=== PATIENT | female | born 1970 | race Caucasian/White ===

== ENCOUNTER → 2016-09-13 | Outpatient (CLI) | payer BC ==
[~2016-09-13] MED LIST: CLAR5TAB PO
--- NOTE | 2016-09-15 09:47 | SLEEPHOME ---
DATE OF PROCEDURE: 09/13/2016 ORDERED BY: Rosi Contreras NP Diagnostic home sleep testing was performed due to concern for the obstructive sleep apnea syndrome. For testing, a NOX-T3 respiratory monitoring device was used. Continuous record was made of pulse, oxygen saturation, airflow, chest and abdominal strain, and body position. 10 hours and 59 minutes of data were reviewed. Of these, 9 hours and 2 minutes were marked as time in bed. During the interval marked time in bed, there were 76 respiratory events identified of 10 seconds in duration or greater for a respiratory event index of 8.4. The events were primarily obstructive, but mixed and central apneas were also seen. The patient's baseline pulse rate 78 beats per minute. Pulse rate ranged 59-107. Baseline saturation 91%. Lowest oxygen saturation 83%. Testing was performed in both the supine and non-supine positions. IMPRESSION: Abnormal home sleep testing with repetitive respiratory events and oxygen desaturations to 83% with a respiratory event index of 8.4 is consistent with the obstructive sleep apnea syndrome. RECOMMENDATION: The patient should be referred for a formal sleep evaluation and in-laboratory pressure titration.
== END ==
LOC: M SLEEP HO 12:30
PROVIDERS: ATTEND Nurse Practitioner Adult Health
DX: G47.30 Sleep apnea, unspecified (principal)

== ENCOUNTER 2016-10-20 16:33 | Emergency (ER) | payer BC ==
[~2016-10-20] VITALS: Ht 170.2 cm; Wt 119.7 kg
[2016-10-20] MEDS ORDERED: FURO20TA2 PO (16:51)
[2016-10-20] MEDS ORDERED: FLUT11IN INH (16:51)
[2016-10-20] MEDS ORDERED: MONTPOW2 (16:51)
[2016-10-20] MEDS ORDERED: LORA10CA PO (16:51)
[2016-10-20] MEDS ORDERED: PROA1AER INH (16:51)
[2016-10-20] MEDS ORDERED: OMEP40CA2 PO (16:51)
[2016-10-20] MEDS ORDERED: BUDE180INH INH (16:51)
[2016-10-20] MEDS ORDERED: KETOROLAC 60 MG/2 ML VIAL (J1885) IM ONE (17:30)
--- NOTE | 2016-10-20 19:10 | REPUSA ---
CLINICAL HISTORY: Pain. COMMENTS: Real time sonography with duplex doppler was performed with attention to the major deep venous struct ures. Evaluation reveals the common femoral, superficial femoral, popliteal and posterior tibial veins to be completely compressible without intraluminal thrombus. There is normal spontaneous phasic flow and augmentation in all deep veins. The greater saphenous/common femoral vein junction is patent. IMPRESSION: No evidence of DVT. Thank you for your kind referral of this patient.
[2016-10-20] MEDS ORDERED: TYLE325T5 PO (19:20)
[2016-10-20] MEDS ORDERED: NAPR500T2 PO (19:20)
[2016-10-20 20:28] LABS: ANION GAP 8 MEQ/L (8-16); BLOOD UREA NITROGEN 18 MG/DL (7-18); CALCIUM LEVEL 8.6 MG/DL (8.5-10.1); CARBON DIOXIDE LEVEL 28 MEQ/L (21-32); CHLORIDE LEVEL 107 MEQ/L (98-107); CREATININE FOR GFR 0.75 MG/DL (0.55-1.02); GLOMERULAR FILTRATION RATE > 60.0 (>58); GLUCOSE, FASTING 88 MG/DL (70-105); POTASSIUM SERUM 3.8 MEQ/L (3.5-5.1); SODIUM LEVEL 143 MEQ/L (136-145)
[2016-10-20 20:41] VITALS: BP 147/81
== END 2016-10-20 20:52 | disposition home or self-care (01) ==
LOC: M ED 17:34
DX: M79.605 Pain in left leg (principal); J45.909 Unspecified asthma, uncomplicated; Z87.891 Personal history of nicotine dependence; Z79.899 Other long term (current) drug therapy; Z91.018 Allergy to other foods; Z88.1 Allergy status to other antibiotic agents; Z88.0 Allergy status to penicillin; Z88.8 Allergy status to other drugs, medicaments and biological substances; Z88.5 Allergy status to narcotic agent
CPT/HCPCS: 36415; 80048; 93971; 96372; 99283; J1885

== ENCOUNTER 2017-04-21 16:15 | Observation (INO) | payer BC ==
[~2017-04-21] VITALS: Ht 170.2 cm; Wt 126.5 kg
[~2017-04-21 16:15] MED LIST changes: +BUDE180INH INH; +FLUT11IN INH; +FURO20TA2 PO; +LORA10CA PO; +MONTPOW2; +NAPR500T3 PO; +OMEP40CA2 PO; +PROAAER10 INH; +TYLE325T5 PO
[2017-04-21] MEDS ORDERED: ONDANSETRON 4 MG ORAL DISINTEGRATING TAB (S0181) PO ONE (18:00)
[2017-04-21] MEDS ORDERED: NORCO, ANEXSIA 5/325MG TABLET (HYDROcodone/ACETAMINOPHEN) PO ONE (18:00)
[2017-04-21 18:21] LABS: BASO % 0.4 % (0.0-1.0); EOS # 0.1 10^3/uL (0.0-0.50); EOS % 1.5 % (0.0-3.0); IMMATURE GRANULOCYTE % 0.2 % (0-0); LYMPH # 1.5 10^3/uL (1.5-4.5); LYMPH % 16.6 % (24.0-44.0); MEAN CORPUSCULAR HEMOGLOBIN 28.8 pg (27.0-33.0); MEAN CORPUSCULAR HGB CONC 33.6 g/dl (32.0-36.5); MEAN CORPUSCULAR VOLUME 85.7 fl (80.0-96.0); MONO # 0.5 10^3/uL (0.0-0.8); MONO % 5.7 % (0.0-5.0); NEUTROPHILS % 75.6 % (36.0-66.0); PLATELET COUNT, AUTOMATED 295 10^3/uL (150-450); RED CELL DISTRIBUTION WIDTH 13.3 % (11.5-14.5); WHITE BLOOD COUNT 9.3 10^3/uL (4.0-10.0)
[2017-04-21 18:41] LABS: ERYTHROCYTE SEDIMENTATION RATE 26 mm/hr (0-20)
[2017-04-21 18:45] LABS: CALCIUM LEVEL 8.9 MG/DL (8.5-10.1); CREATININE FOR GFR 1.09 MG/DL (0.55-1.02)
[2017-04-21 18:56] LABS: POTASSIUM SERUM 2.2 MEQ/L (3.5-5.1)
[2017-04-21] MEDS ORDERED: KCL 20MEQ IN 100ML SWI (KRUN) 20 MEQ in APPROPRIATE DILUENT 1 EA IV ONE ×2 (19:15)
[2017-04-21] MEDS ORDERED: KCL 10MEQ IN 100ML SWI (KRUN) 10 MEQ in APPROPRIATE DILUENT 1 EA IV ONE ×2 (19:15)
[2017-04-21] MEDS ORDERED: POTASSIUM CHLORIDE 10 MEQ SR TABLET PO ONE (19:15)
[2017-04-21 19:20] LABS: MAGNESIUM LEVEL 1.9 MG/DL (1.8-2.4); PHOSPHORUS LEVEL 3.2 MG/DL (2.5-4.9)
[2017-04-21] MEDS ORDERED: MONT10TA2 PO (19:53)
[2017-04-21] MEDS ORDERED: [UNRECOGNIZED DRUG - CODE] VA (19:53)
[2017-04-21] MEDS ORDERED: FLON1SPR (19:53)
[2017-04-21] MEDS ORDERED: TORS20TA2 PO (19:53)
[2017-04-21] MEDS ORDERED: CLAR5TAB PO (19:53)
[2017-04-21] MEDS ORDERED: OXYB15TA PO (19:53)
[2017-04-21] MEDS ORDERED: ARNU1INH3 INH (19:53)
[2017-04-21] MEDS: ADVAIR HFA 230/21MCG INHALER INH SCH (20:00)
[2017-04-21] MEDS ORDERED: KCL 10MEQ IN 100ML SWI (KRUN) 10 MEQ in APPROPRIATE DILUENT 1 EA IV PRN ×2 (20:00)
[2017-04-21] MEDS ORDERED: ALBUTEROL SULFATE 2.5 MG/0.5 ML INH NEB SOLN NEB PRN (20:15)
[2017-04-21] MEDS ORDERED: ACETAMINOPHEN TAB 650MG DOSE (2X325MG) PO PRN (20:15)
[2017-04-21] MEDS ORDERED: ONDANSETRON 4MG/2ML VIAL (J2405) IV PRN (20:15)
[2017-04-21 22:00] VITALS: BP 135/77
[2017-04-22] MEDS: HEPARIN SOD (PORCINE) 5000 UNITS/ML VIAL SC SCH ×2 (00:02→08:48)
[2017-04-22] MEDS: POTASSIUM CHLORIDE 10 MEQ SR TABLET PO SCH ×4 (00:58→14:21)
--- NOTE | 2017-04-22 05:43 | HPEPDOC ---
General Date of Admission Apr 21, 2017 at 20:07 Primary Care Physician: Thao Paez Other Providers Admitting Physician: Emmanuel Briggs MD Attending Physician: KASIA MON DO Chief Complaint The patient is a 46-year-old female admitted with a reason for visit of Hypokalemia Due To Loss Of Potassium. Source: Patient Exam Limitations: No limitations History of Present Illness 46f h/o asthma, venous insufficiency, GERD who presents with LE weakness and cramping in hands. Patient denied, focal motor deficit, dysarthria, dysphagia, parasthesias. She did report pain in her hands that she described as crampy in nature. She did report that she had an adjustment to one of ther home meds ( torsemide) this past week. Patient had labs drawn in ED and found to be severely hypokalemic. Home Medications Scheduled (Flonase Allergy Relief) 50 Mcg/Act Spr, 2 SPRAYS NA DAILY, (Reported) (Arnuity Ellipta) 200 Mcg/Act Inh, 1 PUFF INH DAILY, (Reported) (Yuvafem) 10 Mcg Tab, 10 MCG VA 3XW, (Reported) MON, WED, AND SAT Desloratadine (Clarinex) 5 Mg Tab, 5 MG PO DAILY, (Reported) Montelukast Sodium (Montelukast Sodium) 10 Mg Tab, 10 MG PO DAILY, (Reported) Omeprazole (Omeprazole) 40 Mg Cap, 40 MG PO DAILY, (Reported) Oxybutynin Chloride (Oxybutynin Chloride ER) 15 Mg Tab, 15 MG PO DAILY, ( Reported) Torsemide (Torsemide) 20 Mg Tab, 40 MG PO DAILY, (Reported) Scheduled PRN Albuterol Sulfate (Proair Hfa) 108 Mcg/Act Aer, 2 PUFF INH for BRONCHOSPASM, ( Reported) Allergies Coded Allergies: Coconut (Verified Allergy, Severe, HIVES, SWOLLEN THROAT, 04/03/12) Codeine (Verified Allergy, Intermediate, HIVES, SWELLING, 09/08/12) Erythromycin (Verified Allergy, Intermediate, HIVES, NAUSEA, 09/08/12) Penicillins (Verified Allergy, Unknown, 09/08/12) Penicillins Cross Reactors (Verified Allergy, Unknown, 09/08/12) Carisoprodol (Verified Adverse Reaction, Severe, convulsions, 09/08/12) Pentazocine (Verified Adverse Reaction, Severe, SIEZURES, 09/08/12) [place] Flavor (Verified Adverse Reaction, Mild, 04/21/17) NAUSEA VOMITING Past Medical History Medical History 1. Venous insufficiency 2. Asthma, mild-intermittent 3. Hiatal hernia with GERD 4. Dysmenorrhagia 5. Uterine fibroids 6. Allergic rhinitis Surgical History 1. Cholecystectomy 2. Hysterectomy w/BSO 3. Colposcopy 4. Ganglion cyst removal Family History Significant Family History: Cancer (Breast Ca-1 maternal aunt and 1 maternal uncle; Pancreatic Ca-Another maternal aunt) Social History Recent Travel/Sick Contacts: Denies: Recent travel Psychosocial History: No pertinent psych hx Review of Symptoms Constitutional: Reports: Weakness, Denies: Chills, Fever, Malaise Eyes: Denies: Pain, Vision change ENT: Denies: Head Aches, Dysphagia Skin: Denies: Rash, Lesions Pulmonary: Denies: Dyspnea, Cough Cardiovascular: Denies: Chest Pain, Palpitations, Orthopnea Gastrointestinal: Denies: Nausea, Vomiting, Abdominal Pain Genitourinary: Denies: Dysuria, Frequency, Incontinence Hematologic: Denies: Bruising, Bleeding Excessively Endocrine: Denies: Polydipsia, Polyphagia, Polyuria Musculoskeletal: Reports: Hand Pain, Leg Pain, Spasms, Denies: Neck Pain, Back Pain Neurological: Denies: Weakness, Numbness, Change in speech Psych: Reports: Mood Normal, Denies: Anxiety Physical Examination General Exam: Positive: Alert, No Acute Distress Eye Exam: Positive: Conjunctiva & lids normal, Negative: Sclera icteric ENT Exam: Positive: Atraumatic, Mucous membr. moist/pink Neck Exam: Positive: Supple, Negative: JVD Chest Exam: Positive: Clear to auscultation, Normal air movement, Negative: Rales, Rhonchi, Wheezing Heart Exam: Positive: Rate Normal, Regular Rhythm, Normal S1, Normal S2, Negative: Gallops, Murmurs, Rubs Abdomen Exam: Positive: Normal bowel sounds, Soft, Negative: Tenderness Extremity Exam: Negative: Clubbing, Cyanosis, Edema Skin Exam: Positive: Nl turgor and temperature, Negative: Rash Neuro Exam: Positive: Normal Speech, Cranial Nerves 3-12 NL Psych Exam: Positive: Mental status NL, Mood NL, Oriented x 3 Vital Signs Vital Signs Date Time Temp Pulse Resp B/P (MAP) Pulse Ox O2 Delivery O2 Flow Rate FiO2 04/21/17 22:00 98.0 92 18 135/77 (96) 91 Room Air Laboratory Data Labs 24H Laboratory Tests 2 04/21/17 18:11: Immature Granulocyte % (Auto) 0.2H, White Blood Count 9.3, Red Blood Count 4.97 , Hemoglobin 14.3, Hematocrit 42.6, Mean Corpuscular Volume 85.7, Mean Corpuscular Hemoglobin 28.8, Mean Corpuscular Hemoglobin Concent 33.6, Red Cell Distribution Width 13.3, Platelet Count 295, Neutrophils (%) (Auto) 75.6H, Lymphocytes (%) (Auto) 16.6L, Monocytes (%) (Auto) 5.7H, Eosinophils (%) (Auto) 1.5, Basophils (%) (Auto) 0.4, Neutrophils # (Auto) 7.0, Lymphocytes # (Auto) 1.5, Monocytes # (Auto) 0.5, Eosinophils # (Auto) 0.1, Basophils # (Auto) 0.0, Immature Granulocyte # (Auto) 0.0, Nucleated Red Blood Cells % (auto) 0.0, Erythrocyte Sedimentation Rate 26H, Anion Gap 10, Glomerular Filtration Rate 57.0L, Blood Urea Nitrogen 16, Creatinine 1.09H, Sodium Level 136, Potassium Level 2.2*L, Chloride Level 88L, Carbon Dioxide Level 38H, Calcium Level 8.9, Phosphorus Level 3.2, Magnesium Level 1.9, C-Reactive Protein, Quantitative 2.17H CBC/BMP Laboratory Tests 04/21/17 18:11 Red Blood Count 4.97, Mean Corpuscular Volume 85.7, Mean Corpuscular Hemoglobin 28.8, Mean Corpuscular Hemoglobin Concent 33.6, Red Cell Distribution Width 13.3 , Neutrophils (%) (Auto) 75.6 H, Lymphocytes (%) (Auto) 16.6 L, Monocytes (%) ( Auto) 5.7 H, Eosinophils (%) (Auto) 1.5, Basophils (%) (Auto) 0.4, Neutrophils # (Auto) 7.0, Lymphocytes # (Auto) 1.5, Monocytes # (Auto) 0.5, Eosinophils # ( Auto) 0.1, Basophils # (Auto) 0.0, Calcium Level 8.9 04/21/17 23:41 Assessment/Plan 46f h/o asthma, venous insufficiency, GERD who presents with LE weakness, hand cramping and severe hypokalemia after recent increase in her torsemide dose. Plan Plan 1. Hypokalemia Patient's increased dose of torsemide likely cause Will admit to tele to monitor patient's rhythm Pt had been ordered for KCl 40mEq po x1 and 1 run o KCl iv which would have increase her serum K from 2.2 to 2.5 at best Ordered additional KCl iv, but patient is unable to tolerate Her repeat K after supplementation was 2.6. Have ordered an additional 60mEq q4h and will repeat her BMP Patient will need po KCl upon d/c due to her increased dose of torsemide 2. Asthma Continue LABA/ICS Continue desloratadine Continue singulair 3. DVT prophylaxis Ambulation Emmanuel Briggs MD Apr 22, 2017 05:43
--- NOTE | 2017-04-22 05:56 | ECGEPIP ---
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
--- NOTE | 2017-04-22 06:00 | REP ---
RIGHT HAND, FOUR VIEWS: HISTORY: Pain. There is no acute fracture or dislocation. The joint spaces are normal in appearance. IMPRESSION: There is no acute fracture or dislocation. Signed by Ehsan Luo MD 04/22/2017 08:29 A
[2017-04-22 06:34] LABS: MEAN CORPUSCULAR HEMOGLOBIN 27.9 pg (27.0-33.0); MEAN CORPUSCULAR HGB CONC 32.7 g/dl (32.0-36.5); MEAN CORPUSCULAR VOLUME 85.4 fl (80.0-96.0); PLATELET COUNT, AUTOMATED 244 10^3/uL (150-450); RED CELL DISTRIBUTION WIDTH 13.4 % (11.5-14.5); WHITE BLOOD COUNT 7.1 10^3/uL (4.0-10.0)
[2017-04-22 06:51] LABS: ANION GAP 4 MEQ/L (8-16); BLOOD UREA NITROGEN 14 MG/DL (7-18); CALCIUM LEVEL 8.6 MG/DL (8.5-10.1); CARBON DIOXIDE LEVEL 38 MEQ/L (21-32); CHLORIDE LEVEL 96 MEQ/L (98-107); CREATININE FOR GFR 0.78 MG/DL (0.55-1.02); GLOMERULAR FILTRATION RATE > 60.0 (>58); GLUCOSE, FASTING 105 MG/DL (70-105); MAGNESIUM LEVEL 2.4 MG/DL (1.8-2.4); POTASSIUM SERUM 2.9 MEQ/L (3.5-5.1); SODIUM LEVEL 138 MEQ/L (136-145)
[2017-04-22] MEDS: ADVAIR HFA 230/21MCG INHALER INH SCH (08:12)
[2017-04-22] MEDS ORDERED: FLUTICASONE PROP 0.05% NASAL SPRAY 16 GM (FLONASE) SCH (09:00)
[2017-04-22] MEDS ORDERED: MONTELUKAST 10 MG TAB PO SCH (09:00)
[2017-04-22] MEDS ORDERED: OMEPRAZOLE 20 MG CAP PO SCH (09:00)
[2017-04-22] MEDS ORDERED: oxyBUTYnin *DITROPAN XL* 5 MG TABCR PO SCH (09:00)
[2017-04-22] MEDS ORDERED: TORSEMIDE 20 MG TAB PO SCH (09:00)
[2017-04-22] MEDS ORDERED: DESLORATADINE 5 MG TAB (CLARINEX) PO SCH (09:00)
[2017-04-22 10:11] LABS: ALBUMIN 3.1 GM/DL (3.2-5.2); PHOSPHORUS LEVEL 2.8 MG/DL (2.5-4.9)
[2017-04-22 13:43] LABS: ALBUMIN 3.4 GM/DL (3.2-5.2); ANION GAP 5 MEQ/L (8-16); BLOOD UREA NITROGEN 13 MG/DL (7-18); CALCIUM LEVEL 8.8 MG/DL (8.5-10.1); CARBON DIOXIDE LEVEL 35 MEQ/L (21-32); CHLORIDE LEVEL 98 MEQ/L (98-107); CREATININE FOR GFR 0.86 MG/DL (0.55-1.02); GLOMERULAR FILTRATION RATE > 60.0 (>58); GLUCOSE, FASTING 166 MG/DL (70-105); PHOSPHORUS LEVEL 1.5 MG/DL (2.5-4.9); POTASSIUM SERUM 3.6 MEQ/L (3.5-5.1); SODIUM LEVEL 138 MEQ/L (136-145)
[2017-04-22 14:00] VITALS: BP 158/81
[2017-04-22] MEDS ORDERED: POTA20TA PO (14:20)
--- NOTE | 2017-04-22 14:29 | DS.PDOC ---
Discharge Summary General Date of Admission Apr 21, 2017 at 20:07 Date of Discharge Apr 22, 2017 Primary Care Physician: Thao Paez Attending Physician: KASIA MON DO Discharge Summary CONSULTS: None PROCEDURES: None COMPLICATIONS: None ADMISSION / DISCHARGE DIAGNOSIS: 1. Hypokalemia secondary to medications 2. Venous insufficiency 3. Asthma, mild-intermittent 4. Hiatal hernia with GERD 5. Dysmenorrhea 6. Uterine fibroids 7. Allergic rhinitis BRIEF HOSPITAL COURSE: 46 yo female admitted obs last evening for extremely low potassium. Has been supplemented and doing well without further complaint or issues. She had her triamterene increased a few weeks ago without being started on any additional potassium supplementation. Additional causative factors could be related to albuterol use. She otherwise has no complaints and muscle cramps have resolved. For further information regarding labs, diagnostics and notes, please refer to the H&P. PHYSICAL EXAMINATION ON DISCHARGE: VITAL SIGNS: Please see below. GENERAL: NAD, A&OX3 HEENT: PERRLA, throat clear, neck supple, no JVD CARDIOVASCULAR EXAMINATION: RRR RESPIRATORY EXAMINATION: CTA bilaterally ABDOMINAL EXAMINATION: soft, NT/ND, normoactive bowel sounds EXTREMITIES: no edema no calf tenderness SKIN: intact NEUROLOGICAL EXAMINATION: CN'S II-XII grossly intact PSYCHIATRIC EXAMINATION: stable DISCHARGE MEDICATIONS: See below DISCHARGE CONDITION: GOOD DISPOSITION: DISCHARGE HOME DISCHARGE INSTRUCTIONS: Activity: As tolerated Diet: Regular Follow up: one week with PCP. Seek medical attention should symptoms worsen or progress. Voiced understanding by patient. TRANSITION OF CARE ISSUES: Repeat renal profile at PCP office in one week. TIME SPENT ON DISCHARGE: greater than 35 minutes Vital Signs/I&Os Vital Signs Date Time Temp Pulse Resp B/P (MAP) Pulse Ox O2 Delivery O2 Flow Rate FiO2 04/22/17 09:02 Room Air 04/21/17 22:00 98.0 92 18 135/77 (96) 91 I&O- Last 24 Hours up to 6 AM 04/23/17 06:00 Intake Total 600 ml Output Total 1300 ml Balance -700 ml Laboratory Data Labs 24H Laboratory Tests 2 04/21/17 18:11: Immature Granulocyte % (Auto) 0.2H, White Blood Count 9.3, Red Blood Count 4.97 , Hemoglobin 14.3, Hematocrit 42.6, Mean Corpuscular Volume 85.7, Mean Corpuscular Hemoglobin 28.8, Mean Corpuscular Hemoglobin Concent 33.6, Red Cell Distribution Width 13.3, Platelet Count 295, Neutrophils (%) (Auto) 75.6H, Lymphocytes (%) (Auto) 16.6L, Monocytes (%) (Auto) 5.7H, Eosinophils (%) (Auto) 1.5, Basophils (%) (Auto) 0.4, Neutrophils # (Auto) 7.0, Lymphocytes # (Auto) 1.5, Monocytes # (Auto) 0.5, Eosinophils # (Auto) 0.1, Basophils # (Auto) 0.0, Immature Granulocyte # (Auto) 0.0, Nucleated Red Blood Cells % (auto) 0.0, Erythrocyte Sedimentation Rate 26H, Anion Gap 10, Glomerular Filtration Rate 57.0L, Blood Urea Nitrogen 16, Creatinine 1.09H, Sodium Level 136, Potassium Level 2.2*L, Chloride Level 88L, Carbon Dioxide Level 38H, Calcium Level 8.9, Phosphorus Level 3.2, Magnesium Level 1.9, C-Reactive Protein, Quantitative 2.17H 04/22/17 06:23: Nucleated Red Blood Cells % (auto) 0.0, Anion Gap 4L, Glomerular Filtration Rate > 60.0, Blood Urea Nitrogen 14, Creatinine 0.78, Sodium Level 138, Potassium Level 2.9*L, Chloride Level 96L, Carbon Dioxide Level 38H, Calcium Level 8.6, Phosphorus Level 2.8, Magnesium Level 2.4, Albumin 3.1L 04/22/17 12:57: Anion Gap 5L, Glomerular Filtration Rate > 60.0, Blood Urea Nitrogen 13, Creatinine 0.86, Sodium Level 138, Potassium Level 3.6#, Chloride Level 98, Carbon Dioxide Level 35H, Calcium Level 8.8, Phosphorus Level 1.5#L, Albumin 3.4 CBC/BMP Laboratory Tests 04/21/17 18:11 Red Blood Count 4.97, Mean Corpuscular Volume 85.7, Mean Corpuscular Hemoglobin 28.8, Mean Corpuscular Hemoglobin Concent 33.6, Red Cell Distribution Width 13.3 , Neutrophils (%) (Auto) 75.6 H, Lymphocytes (%) (Auto) 16.6 L, Monocytes (%) ( Auto) 5.7 H, Eosinophils (%) (Auto) 1.5, Basophils (%) (Auto) 0.4, Neutrophils # (Auto) 7.0, Lymphocytes # (Auto) 1.5, Monocytes # (Auto) 0.5, Eosinophils # ( Auto) 0.1, Basophils # (Auto) 0.0, Calcium Level 8.9 04/21/17 23:41 04/22/17 06:23 Red Blood Count 4.26, Mean Corpuscular Volume 85.4, Mean Corpuscular Hemoglobin 27.9, Mean Corpuscular Hemoglobin Concent 32.7, Red Cell Distribution Width 13.4 , Calcium Level 8.6 04/22/17 12:57 Anion Gap 5 L Discharge Medications Scheduled (Flonase Allergy Relief) 50 Mcg/Act Spr, 2 SPRAYS NA DAILY, (Reported) (Arnuity Ellipta) 200 Mcg/Act Inh, 1 PUFF INH DAILY, (Reported) (Yuvafem) 10 Mcg Tab, 10 MCG VA 3XW, (Reported) MON, WED, AND SAT Desloratadine (Clarinex) 5 Mg Tab, 5 MG PO DAILY, (Reported) Montelukast Sodium (Montelukast Sodium) 10 Mg Tab, 10 MG PO DAILY, (Reported) Omeprazole (Omeprazole) 40 Mg Cap, 40 MG PO DAILY, (Reported) Oxybutynin Chloride (Oxybutynin Chloride ER) 15 Mg Tab, 15 MG PO DAILY, ( Reported) Potassium Chloride (Klor-Con M20) 20 Meq Tabcr, 20 MEQ PO DAILY Torsemide (Torsemide) 20 Mg Tab, 40 MG PO DAILY, (Reported) Scheduled PRN Albuterol Sulfate (Proair Hfa) 108 Mcg/Act Aer, 2 PUFF INH for BRONCHOSPASM, ( Reported) Allergies Coded Allergies: Coconut (Verified Allergy, Severe, HIVES, SWOLLEN THROAT, 04/03/12) Codeine (Verified Allergy, Intermediate, HIVES, SWELLING, 09/08/12) Erythromycin (Verified Allergy, Intermediate, HIVES, NAUSEA, 09/08/12) Penicillins (Verified Allergy, Unknown, 09/08/12) Penicillins Cross Reactors (Verified Allergy, Unknown, 09/08/12) Carisoprodol (Verified Adverse Reaction, Severe, convulsions, 09/08/12) Pentazocine (Verified Adverse Reaction, Severe, SIEZURES, 09/08/12) [place] Flavor (Verified Adverse Reaction, Mild, 04/21/17) NAUSEA VOMITING KASIA MON DO Apr 22, 2017 14:29
--- NOTE | 2017-04-24 23:49 | ECGEPIP ---
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
== END 2017-04-22 16:40 | disposition home or self-care (01) ==
LOC: M ED 16:15 → M ED INP 20:07 → M MSPAV 22:00
PROVIDERS: ATTEND Hospitalist
DX: E87.6 Hypokalemia (principal); J45.20 Mild intermittent asthma, uncomplicated; K21.9 Gastro-esophageal reflux disease without esophagitis; K44.9 Diaphragmatic hernia without obstruction or gangrene; N94.6 Dysmenorrhea, unspecified; D25.9 Leiomyoma of uterus, unspecified; I73.9 Peripheral vascular disease, unspecified; J30.89 Other allergic rhinitis; M79.641 Pain in right hand; Z79.51 Long term (current) use of inhaled steroids; Z88.0 Allergy status to penicillin; Z88.5 Allergy status to narcotic agent; Z88.8 Allergy status to other drugs, medicaments and biological substances; Z91.018 Allergy to other foods; Z79.899 Other long term (current) drug therapy

== ENCOUNTER → 2017-05-24 | Outpatient (REF) | payer BC ==
[~2017-05-24] MED LIST changes: +ARNU1INH3 INH; +FLON1SPR; +MONT10TA2 PO; +OXYB15TA PO; +POTA20TA PO; +TORS20TA2 PO; +[UNRECOGNIZED DRUG - CODE] VA
== END ==
LOC: M LAB REF 12:51
PROVIDERS: ATTEND Nurse Practitioner Adult Health
DX: E87.6 Hypokalemia (principal); R25.2 Cramp and spasm; R20.8 Other disturbances of skin sensation

== ENCOUNTER → 2017-06-28 | Outpatient (REF) | payer BC ==
[2017-06-28 14:47] LABS: FOLLICLE STIMULATING HORMONE 61.9 mIU/mL; LUTEINIZING HORMONE 34.7 mIU/mL
[2017-06-29 15:11] LABS: ADRENOCORTICOTROPHIC HORMONE 12.1 pg/mL (7.2-63.3)
[2017-06-30 00:07] LABS: SOMATOMEDIN-C INSULIN GROWTH 94 ng/mL (57-195)
== END ==
LOC: M LAB REF 12:06
DX: R79.89 Other specified abnormal findings of blood chemistry (principal); E87.6 Hypokalemia; R25.2 Cramp and spasm
CPT/HCPCS: 83001

== ENCOUNTER 2017-07-30 17:27 | Emergency (ER) | payer BC ==
[2017-07-30] MEDS: GI COCKTAIL 50ML BTL(HYOSCYAMINE/MAALOX/LIDOCAINE VISCOUS)(1:3:1) PO (19:05)
[2017-07-30] MEDS: NS 1,000 ML IV (19:05)
[2017-07-30] MEDS: PANTOPRAZOLE 40MG INJ (PROTONIX) (C9113) IV (19:05)
[2017-07-30] MEDS: ASPIRIN 81 MG CHEW TABLET PO (19:05)
[2017-07-30 19:15] LABS: BASO % 0.6 % (0.0-1.0); EOS # 0.2 10^3/uL (0.0-0.50); EOS % 2.1 % (0.0-3.0); HEMATOCRIT 39.6 % (36.0-47.0); HEMOGLOBIN 13.4 g/dl (12.0-16.0); IMMATURE GRANULOCYTE % 0.3 % (0-3.0); LYMPH # 2.1 10^3/uL (1.5-4.5); LYMPH % 29.3 % (24.0-44.0); MEAN CORPUSCULAR HEMOGLOBIN 29.2 pg (27.0-33.0); MEAN CORPUSCULAR HGB CONC 33.8 g/dl (32.0-36.5); MEAN CORPUSCULAR VOLUME 86.3 fl (80.0-96.0); MONO # 0.6 10^3/uL (0.0-0.8); MONO % 8.6 % (0.0-5.0); NEUTROPHILS # 4.2 10^3/uL (1.8-7.7); NEUTROPHILS % 59.1 % (36.0-66.0); PLATELET COUNT, AUTOMATED 291 10^3/uL (150-450); RED BLOOD COUNT 4.59 10^6/uL (4.00-5.40); RED CELL DISTRIBUTION WIDTH 13.6 % (11.5-14.5); WHITE BLOOD COUNT 7.1 10^3/uL (4.0-10.0)
[2017-07-30 19:19] LABS: ALBUMIN 3.7 GM/DL (3.2-5.2); ALBUMIN/GLOBULIN RATIO 0.97 (1.00-1.93); ALKALINE PHOSPHATASE 94 U/L (45-117); ALT/SGPT 44 U/L (12-78); ANION GAP 5 MEQ/L (8-16); AST/SGOT 26 U/L (7-37); BILIRUBIN,DIRECT < 0.1 MG/DL (0.0-0.2); BILIRUBIN,TOTAL 0.2 MG/DL (0.2-1.0); BLOOD UREA NITROGEN 16 MG/DL (7-18); CALCIUM LEVEL 8.6 MG/DL (8.5-10.1); CARBON DIOXIDE LEVEL 30 MEQ/L (21-32); CHLORIDE LEVEL 107 MEQ/L (98-107); CPK CREATINE PHOSPHOKINASE 109 U/L (26-192); CREATININE FOR GFR 0.92 MG/DL (0.55-1.30); GLOMERULAR FILTRATION RATE > 60.0 (>58); GLUCOSE, FASTING 120 MG/DL (70-100); MB/CK RELATIVE INDEX 0.91 (< OR =4); POTASSIUM SERUM 3.3 MEQ/L (3.5-5.1); SODIUM LEVEL 142 MEQ/L (136-145); TOTAL PROTEIN 7.5 GM/DL (6.4-8.2); TROPONIN I < 0.02 NG/ML (< 0.10)
[2017-07-30 19:28] LABS: INR 1.01; PROTHROMBIN TIME 13.4 SECONDS (12.4-14.5)
[2017-07-30 20:44] LABS: INFLUENZA A AMPLIFICATION NEGATIVE (NEGATIVE); INFLUENZA B AMPLIFICATION NEGATIVE (NEGATIVE)
== END 2017-07-30 22:16 | disposition home or self-care (01) ==
LOC: M ED 17:27
DX: B34.9 Viral infection, unspecified (principal); E11.9 Type 2 diabetes mellitus without complications; I10 Essential (primary) hypertension; J44.9 Chronic obstructive pulmonary disease, unspecified; Z87.891 Personal history of nicotine dependence; Z91.018 Allergy to other foods; Z88.8 Allergy status to other drugs, medicaments and biological substances; Z88.0 Allergy status to penicillin; Z88.5 Allergy status to narcotic agent; Z88.1 Allergy status to other antibiotic agents; Z79.899 Other long term (current) drug therapy; Z79.51 Long term (current) use of inhaled steroids
CPT/HCPCS: C9113

== ENCOUNTER → 2017-08-02 | Outpatient (CLI) | payer BC ==
[2017-08-02 18:13] LABS: ANION GAP 9 MEQ/L (8-16); BLOOD UREA NITROGEN 13 MG/DL (7-18); CALCIUM LEVEL 9.2 MG/DL (8.5-10.1); CARBON DIOXIDE LEVEL 25 MEQ/L (21-32); CHLORIDE LEVEL 109 MEQ/L (98-107); CREATININE FOR GFR 0.76 MG/DL (0.55-1.30); GLOMERULAR FILTRATION RATE > 60.0 (>58); GLUCOSE, FASTING 84 MG/DL (70-100); POTASSIUM SERUM 4.1 MEQ/L (3.5-5.1); SODIUM LEVEL 143 MEQ/L (136-145)
== END ==
LOC: M LAB 17:05
DX: E11.65 Type 2 diabetes mellitus with hyperglycemia (principal)
CPT/HCPCS: 80048

== ENCOUNTER → 2017-08-12 | Outpatient (CLI) | payer BC ==
[2017-08-12 18:01] LABS: ANION GAP 8 MEQ/L (8-16); BLOOD UREA NITROGEN 9 MG/DL (7-18); CALCIUM LEVEL 8.6 MG/DL (8.5-10.1); CARBON DIOXIDE LEVEL 26 MEQ/L (21-32); CHLORIDE LEVEL 108 MEQ/L (98-107); CREATININE FOR GFR 0.78 MG/DL (0.55-1.30); GLOMERULAR FILTRATION RATE > 60.0 (>58); GLUCOSE, FASTING 83 MG/DL (70-100); POTASSIUM SERUM 3.8 MEQ/L (3.5-5.1); SODIUM LEVEL 142 MEQ/L (136-145)
== END ==
LOC: M LAB 16:28
DX: E11.65 Type 2 diabetes mellitus with hyperglycemia (principal)
CPT/HCPCS: 80048

== ENCOUNTER → 2017-08-13 | Outpatient (CLI) | payer BC ==
[2017-08-13 11:39] LABS: ANION GAP 7 MEQ/L (8-16); BLOOD UREA NITROGEN 7 MG/DL (7-18); CALCIUM LEVEL 8.4 MG/DL (8.5-10.1); CARBON DIOXIDE LEVEL 25 MEQ/L (21-32); CHLORIDE LEVEL 110 MEQ/L (98-107); CREATININE FOR GFR 0.74 MG/DL (0.55-1.30); GLOMERULAR FILTRATION RATE > 60.0 (>58); GLUCOSE, FASTING 96 MG/DL (70-100); POTASSIUM SERUM 3.9 MEQ/L (3.5-5.1); SODIUM LEVEL 142 MEQ/L (136-145)
[2017-08-13 11:47] LABS: CORTISOL AM 6.6 UG/DL (4.3-22.4)
== END ==
LOC: M LAB 10:15
DX: E87.6 Hypokalemia (principal); E11.65 Type 2 diabetes mellitus with hyperglycemia
CPT/HCPCS: 84244

== ENCOUNTER → 2017-08-20 | Outpatient (CLI) | payer BC ==
[2017-08-20 09:54] LABS: ANION GAP 6 MEQ/L (8-16); BLOOD UREA NITROGEN 11 MG/DL (7-18); CALCIUM LEVEL 8.6 MG/DL (8.5-10.1); CARBON DIOXIDE LEVEL 27 MEQ/L (21-32); CHLORIDE LEVEL 110 MEQ/L (98-107); CREATININE FOR GFR 0.73 MG/DL (0.55-1.30); GLOMERULAR FILTRATION RATE > 60.0 (>58); GLUCOSE, FASTING 104 MG/DL (70-100); POTASSIUM SERUM 3.9 MEQ/L (3.5-5.1); SODIUM LEVEL 143 MEQ/L (136-145)
== END ==
LOC: M LAB 08:27
DX: E11.65 Type 2 diabetes mellitus with hyperglycemia (principal)
CPT/HCPCS: 80048

== ENCOUNTER → 2017-08-22 | Outpatient (CLI) | payer BC ==
[2017-08-28 00:06] LABS: ALDOS/RENIN RATIO 8.6 (0.0-30.0); ALDOSTERONE 5.3 ng/dL (0.0-30.0); RENIN ACTIVITY 0.617 ng/mL/hr (0.167-5.380)
== END ==
LOC: M LAB 08:17
DX: E87.6 Hypokalemia (principal)
CPT/HCPCS: 84244

== ENCOUNTER → 2017-09-10 | Outpatient (CLI) | payer BC ==
[2017-09-10 08:38] LABS: ANION GAP 5 MEQ/L (8-16); BLOOD UREA NITROGEN 12 MG/DL (7-18); CALCIUM LEVEL 8.7 MG/DL (8.5-10.1); CARBON DIOXIDE LEVEL 30 MEQ/L (21-32); CHLORIDE LEVEL 108 MEQ/L (98-107); CREATININE FOR GFR 0.83 MG/DL (0.55-1.30); GLOMERULAR FILTRATION RATE > 60.0 (>58); GLUCOSE, FASTING 107 MG/DL (70-100); POTASSIUM SERUM 3.7 MEQ/L (3.5-5.1); SODIUM LEVEL 143 MEQ/L (136-145)
== END ==
LOC: M LAB 08:02
DX: E87.6 Hypokalemia (principal)

== ENCOUNTER → 2017-10-09 | Outpatient (REF) | payer BC ==
[2017-10-09 20:20] LABS: POTASSIUM RANDOM URINE 110.6 MEQ/L
== END ==
LOC: M LAB REF 17:56
DX: E87.6 Hypokalemia (principal)
CPT/HCPCS: 84133

== ENCOUNTER → 2017-10-14 | Outpatient (REF) | payer BC ==
[2017-10-14 14:34] LABS: POTASSIUM URINE 23.4 MEQ/L
[2017-10-14 20:13] LABS: POTASSIUM 24 HOUR URINE 33.9 MEQ/24HR (25-125); TOTAL VOLUME, URINE 1450 ML
== END ==
LOC: M LAB REF 13:15
DX: E87.6 Hypokalemia (principal)
CPT/HCPCS: 81050

== ENCOUNTER → 2017-11-29 | Outpatient (REF) | payer BC ==
[2017-11-29 14:05] LABS: OSMOLALITY SERUM 293 MOSM/KG (275-295)
[2017-11-29 14:09] LABS: OSMOLALITY URINE 274 MOSM/KG (500-800)
[2017-11-29 14:13] LABS: POTASSIUM RANDOM URINE 7.2 MEQ/L
== END ==
LOC: M LAB REF 13:01
DX: E87.6 Hypokalemia (principal)
CPT/HCPCS: 83930

== ENCOUNTER → 2018-04-29 | Outpatient (CLI) | payer BC ==
[2018-04-29 10:43] LABS: CHOLESTEROL LEVEL 189 MG/DL (<200); CHOLESTEROL RISK RATIO 5.108 (<5); HDL CHOLESTEROL 37 MG/DL (>40); LDL CHOLESTEROL 130 MG/DL (<100); NON-HDL-C 152 MG/DL; TRIGLYCERIDES LEVEL 111 MG/DL (<150)
== END ==
LOC: M LAB 09:14
DX: E78.00 Pure hypercholesterolemia, unspecified (principal)
CPT/HCPCS: 80061

== ENCOUNTER → 2018-06-27 | Outpatient (REF) | payer BC ==
[~2018-06-27] MED LIST changes: +EPIN0.3I11; +FARX1TAB3 PO; +KLOR20TA42 PO; +NAPR-885 PO; -NAPR500T3 PO; -POTA20TA PO; +SPIR-10; +YUVA10TA3 VA; -[UNRECOGNIZED DRUG - CODE] VA
[2018-06-27 17:18] LABS: AMYLASE 32 U/L (25-115); LIPASE 139 U/L (73-393)
== END ==
LOC: M LAB REF 16:21
PROVIDERS: ATTEND Nurse Practitioner Adult Health
DX: R19.7 Diarrhea, unspecified (principal); R30.0 Dysuria

== ENCOUNTER → 2018-08-07 | Outpatient (REF) | payer BC | LOC: M LAB REF 12:39 | PROVIDERS: ATTEND Nurse Practitioner Adult Health | DX: R30.0 Dysuria (principal) ==

== ENCOUNTER → 2018-09-09 | Outpatient (REF) | payer BC ==
[2018-09-09 15:58] LABS: FREE T4 1.01 NG/DL (0.76-1.46); THYROID STIMULATING HORMONE 2.35 uIU/ML (0.358-3.740)
== END ==
LOC: M LAB REF 15:24
PROVIDERS: ATTEND Internal Medicine Nephrology
DX: E87.6 Hypokalemia (principal)

== ENCOUNTER → 2018-10-17 | Outpatient (CLI) | payer BC ==
[2018-10-17 16:02] LABS: ALBUMIN 3.8 GM/DL (3.2-5.2); BLOOD UREA NITROGEN 16 MG/DL (7-18); CARBON DIOXIDE LEVEL 27 MEQ/L (21-32); CHLORIDE LEVEL 107 MEQ/L (98-107); CREATININE FOR GFR 0.68 MG/DL (0.55-1.30); GLOMERULAR FILTRATION RATE > 60.0 (>58); GLUCOSE, FASTING 107 MG/DL (70-100); PHOSPHORUS LEVEL 3.7 MG/DL (2.5-4.9); POTASSIUM SERUM 4.1 MEQ/L (3.5-5.1); SODIUM LEVEL 139 MEQ/L (136-145)
== END ==
LOC: M LAB 15:11
PROVIDERS: ATTEND Internal Medicine Nephrology
DX: E87.6 Hypokalemia (principal)

== ENCOUNTER → 2019-01-20 | Outpatient (CLI) | payer BC ==
[2019-01-20 09:14] LABS: ALBUMIN 3.6 GM/DL (3.2-5.2); ALT/SGPT 24 U/L (12-78); BILIRUBIN,DIRECT 0.1 MG/DL (0.0-0.2); BILIRUBIN,TOTAL 0.3 MG/DL (0.2-1.0); BLOOD UREA NITROGEN 16 MG/DL (7-18); CALCIUM LEVEL 9.3 MG/DL (8.5-10.1); CARBON DIOXIDE LEVEL 27 MEQ/L (21-32); CHLORIDE LEVEL 109 MEQ/L (98-107); CHOLESTEROL LEVEL 159 MG/DL (<200); CHOLESTEROL RISK RATIO 3.613 (<5); CREATININE FOR GFR 0.79 MG/DL (0.55-1.30); GLOMERULAR FILTRATION RATE > 60.0 (>51); GLUCOSE, FASTING 94 MG/DL (70-100); HDL CHOLESTEROL 44 MG/DL (>40); LDL CHOLESTEROL 96 MG/DL (<100); NON-HDL-C 115 MG/DL; POTASSIUM SERUM 4.2 MEQ/L (3.5-5.1); SODIUM LEVEL 142 MEQ/L (136-145); TOTAL PROTEIN 6.7 GM/DL (6.4-8.2); TRIGLYCERIDES LEVEL 94 MG/DL (<150)
== END ==
LOC: M LAB 07:55
PROVIDERS: ATTEND Internal Medicine Endocrinology, Diabetes & Metabolism
DX: E11.65 Type 2 diabetes mellitus with hyperglycemia (principal)

== ENCOUNTER → 2019-02-03 | Outpatient (REF) | payer BC | LOC: M LAB REF 17:08 | PROVIDERS: ATTEND Nurse Practitioner Adult Health | DX: Z00.01 Encounter for general adult medical examination with abnormal findings (principal); J01.90 Acute sinusitis, unspecified ==

== ENCOUNTER → 2019-03-05 | Outpatient (REF) | payer BC ==
[2019-03-05 17:57] LABS: THYROID STIMULATING HORMONE 1.53 uIU/ML (0.358-3.740)
== END ==
LOC: M LAB REF 16:57
PROVIDERS: ATTEND Nurse Practitioner Family
DX: R20.2 Paresthesia of skin (principal); R53.83 Other fatigue

== ENCOUNTER 2019-05-12 09:39 | Day surgery (SDC) | payer BC ==
[~2019-05-12] VITALS: Ht 170.2 cm; Wt 117.4 kg
[~2019-05-12 09:39] MED LIST changes: +FAMO20TA PO; +KLOR10TA76 PO; +LEVAINH INH; +NS 1,000 ML IV ONE; -OMEP40CA2 PO; +OMEP40CA97 PO; -OXYB15TA PO; +OXYB1TAB13 PO; -SPIR-10; +SPIR-10 PO
[2019-05-12] MEDS ORDERED: PROPOFOL 200 MG/20 ML VIAL As Ordered ONE ×3 (10:40→10:53)
[2019-05-12] MEDS ORDERED: LIDOCAINE 2% INJ 100 MG/5 ML SDV (FOR ANES.) As Ordered ONE (10:40)
--- NOTE | 2019-05-12 10:41 | ROOR ---
Patient Name: Fang Dean Procedure Date: 05/12/2019 10:24 AM Date of : 1970 Age: 48 Room: [facility] Gender: Female Note Status: Finalized Procedure: Upper GI endoscopy Indications: Heartburn Providers: Chuy GARCIA MD Referring MD: Thao Paez NP Requesting Provider: Medicines: Monitored Anesthesia Care Complications: No immediate complications. Procedure: Pre-Anesthesia Assessment: - The heart rate, respiratory rate, oxygen saturations, blood pressure, adequacy of pulmonary ventilation, and response to care were monitored throughout the procedure. The Endoscope was introduced through the mouth, and advanced to the second part of duodenum. The upper GI endoscopy was accomplished without difficulty. The patient tolerated the procedure well. Findings: The examined esophagus was normal. Multiple 5 mm semi-sessile polyps were found in the gastric fundus and in the gastric body. The polyp was removed with a cold snare. Polyp resection was incomplete. The resected tissue was retrieved. The exam of the stomach was otherwise normal. The examined duodenum was normal. Impression: - Normal esophagus. - Multiple gastric polyps (appearance of fundic glandd polyps). Several polyps removed. Resected tissue retrieved. - The stomach is otherwise normal. - Normal examined duodenum. Recommendation: - Telephone endoscopist for pathology results in 2 weeks. Chuy Garcia MD Chuy GARCIA MD 05/12/2019 10:41:16 AM Electronically signed by Chuy GARCIA MD Number of Addenda: 0 Note Initiated On: 05/12/2019 10:24 AM Estimated Blood Loss: Estimated blood loss: none.
--- NOTE | 2019-05-12 10:56 | ROOR ---
Patient Name: Fang Dean Procedure Date: 05/12/2019 10:25 AM Date of : 1970 Age: 48 Room: [facility] Gender: Female Note Status: Finalized Procedure: Colonoscopy Indications: Screening for colorectal malignant neoplasm Providers: Chuy GARCIA MD Referring MD: Thao Paez NP Requesting Provider: Medicines: Monitored Anesthesia Care Complications: No immediate complications. Procedure: Pre-Anesthesia Assessment: - The heart rate, respiratory rate, oxygen saturations, blood pressure, adequacy of pulmonary ventilation, and response to care were monitored throughout the procedure. The Colonoscope was introduced through the anus and advanced to the terminal ileum, with identification of the appendiceal orifice and IC valve. The colonoscopy was performed without difficulty. The patient tolerated the procedure well. The quality of the bowel preparation was good. Findings: The perianal and digital rectal examinations were normal. A 5 mm polyp was found in the appendiceal orifice. The polyp was sessile. The polyp was removed with a cold snare. Resection and retrieval were complete. A few small-mouthed diverticula were found in the sigmoid colon. The exam was otherwise without abnormality on direct and retroflexion views. Impression: - One 5 mm polyp at the appendiceal orifice, removed with a cold snare. Resected and retrieved. - Mild diverticulosis in the sigmoid colon. - The examination was otherwise normal on direct and retroflexion views. Recommendation: - Repeat colonoscopy in 5 years for surveillance. Chuy Garcia MD Chuy GARCIA MD 05/12/2019 10:55:56 AM Electronically signed by Chuy GARCIA MD Number of Addenda: 0 Note Initiated On: 05/12/2019 10:25 AM Estimated Blood Loss: Estimated blood loss: none.
[2019-05-12 11:35] VITALS: BP 124/82
== END 2019-05-12 11:37 | disposition home or self-care (01) ==
LOC: M OPP 09:39
PROVIDERS: ATTEND Internal Medicine Gastroenterology
DX: Z12.11 Encounter for screening for malignant neoplasm of colon (principal); D12.1 Benign neoplasm of appendix; K57.30 Diverticulosis of large intestine without perforation or abscess without bleeding; R12 Heartburn; K31.7 Polyp of stomach and duodenum; G47.30 Sleep apnea, unspecified; Z79.899 Other long term (current) drug therapy; Z88.1 Allergy status to other antibiotic agents; Z91.018 Allergy to other foods

== ENCOUNTER 2019-05-21 20:12 | Emergency (ER) | payer BC ==
[~2019-05-21] VITALS: Ht 172.7 cm; Wt 109.1 kg
[~2019-05-21 20:12] MED LIST changes: -NS 1,000 ML IV ONE
[2019-05-21] MEDS ORDERED: KETOROLAC 30 MG/ML VIAL (J1885) IV ONE (21:00)
[2019-05-21] MEDS ORDERED: NS 500 ML IV ONE (21:00)
[2019-05-21 21:29] LABS: BASO % 0.5 % (0.0-1.0); EOS # 0.1 10^3/uL (0.0-0.5); EOS % 1.7 % (0.0-3.0); HEMATOCRIT 43.3 % (36.0-47.0); HEMOGLOBIN 14.1 g/dl (12.0-15.5); LYMPH # 2.5 10^3/uL (1.5-5.0); LYMPH % 29.4 % (24.0-44.0); MEAN CORPUSCULAR HEMOGLOBIN 28.8 pg (27.0-33.0); MEAN CORPUSCULAR HGB CONC 32.6 g/dl (32.0-36.5); MEAN CORPUSCULAR VOLUME 88.5 fl (80.0-96.0); MONO # 0.5 10^3/uL (0.0-0.8); MONO % 6.5 % (0.0-5.0); NEUTROPHILS # 5.1 10^3/uL (1.5-8.5); NEUTROPHILS % 61.5 % (36.0-66.0); PLATELET COUNT, AUTOMATED 256 10^3/uL (150-450); RED BLOOD COUNT 4.89 10^6/uL (4.00-5.40); WHITE BLOOD COUNT 8.3 10^3/uL (4.0-10.0)
[2019-05-21] MEDS ORDERED: D200CAP3 PO (21:47)
[2019-05-21] MEDS ORDERED: ATOR40TA75 (21:47)
[2019-05-21 22:07] LABS: BLOOD UREA NITROGEN 12 MG/DL (7-18); CALCIUM LEVEL 8.8 MG/DL (8.5-10.1); CARBON DIOXIDE LEVEL 27 MEQ/L (21-32); CHLORIDE LEVEL 104 MEQ/L (98-107); CPK CREATINE PHOSPHOKINASE 92 U/L (26-192); CREATININE FOR GFR 0.84 MG/DL (0.55-1.30); GLOMERULAR FILTRATION RATE > 60.0 (>51); GLUCOSE, FASTING 144 MG/DL (70-100); MB/CK RELATIVE INDEX 1.09 (< OR =4); POTASSIUM SERUM 4.3 MEQ/L (3.5-5.1); SODIUM LEVEL 139 MEQ/L (136-145); TROPONIN I < 0.02 NG/ML (< 0.10)
--- NOTE | 2019-05-21 22:15 | ECGEPIP ---
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
[2019-05-21 23:02] VITALS: BP 100/60
--- NOTE | 2019-05-22 08:20 | REP ---
Portable chest x-ray: Single view. History: Chest pain. Comparison study: July 30, 2017. Findings: The lungs are well inflated and clear. Pleural angles are sharp. Heart size is normal. No significant bony abnormalities seen. Impression: No active disease. Electronically Signed by Justus Syed MD 05/22/2019 08:12 A
== END 2019-05-21 23:29 | disposition home or self-care (01) ==
LOC: M ED 20:12
DX: R51 Headache (principal); B34.9 Viral infection, unspecified; R94.31 Abnormal electrocardiogram [ECG] [EKG]; E11.9 Type 2 diabetes mellitus without complications; Z88.0 Allergy status to penicillin; Z91.018 Allergy to other foods; Z91.030 Bee allergy status; Z88.5 Allergy status to narcotic agent; Z79.51 Long term (current) use of inhaled steroids; Z79.899 Other long term (current) drug therapy; Z79.811 Long term (current) use of aromatase inhibitors
CPT/HCPCS: 71045; 80048; 82550; 82553; 84484; 85025; 93005; 93041; 94760; 96374; 99285; J1885

== ENCOUNTER → 2020-01-21 | Outpatient (CLI) | payer BC ==
[~2020-01-21] MED LIST changes: +ATOR40TA75; +D200CAP3 PO; -MONT10TA2 PO; +MONT10TA4 PO; +OXYB15TA14 PO; -OXYB1TAB13 PO
[2020-03-09 09:33] LABS: BLOOD UREA NITROGEN 11 MG/DL (7-18); CALCIUM LEVEL 8.9 MG/DL (8.5-10.1); CARBON DIOXIDE LEVEL 27 MEQ/L (21-32); CHLORIDE LEVEL 110 MEQ/L (98-107); GLOMERULAR FILTRATION RATE > 60.0 (>51); GLUCOSE, FASTING 91 MG/DL (70-100); POTASSIUM SERUM 3.9 MEQ/L (3.5-5.1); SODIUM LEVEL 142 MEQ/L (136-145)
== END ==
LOC: M LAB 16:20
PROVIDERS: ATTEND Internal Medicine Endocrinology, Diabetes & Metabolism
DX: E11.65 Type 2 diabetes mellitus with hyperglycemia (principal)

== ENCOUNTER → 2020-08-05 | Outpatient (CLI) | payer BC ==
[~2020-08-05] MED LIST changes: +MONT10TA10 PO; -MONT10TA4 PO
[2020-08-05 14:20] LABS: BLOOD UREA NITROGEN 15 MG/DL (7-18); CALCIUM LEVEL 9.3 MG/DL (8.5-10.1); CARBON DIOXIDE LEVEL 26 MEQ/L (21-32); CHLORIDE LEVEL 107 MEQ/L (98-107); CREATININE FOR GFR 0.75 MG/DL (0.55-1.30); GLOMERULAR FILTRATION RATE > 60.0 (>51); GLUCOSE, FASTING 135 MG/DL (70-100); POTASSIUM SERUM 4.5 MEQ/L (3.5-5.1); SODIUM LEVEL 138 MEQ/L (136-145)
== END ==
LOC: M LAB 12:56
PROVIDERS: ATTEND Internal Medicine Endocrinology, Diabetes & Metabolism
DX: E11.65 Type 2 diabetes mellitus with hyperglycemia (principal)

== ENCOUNTER → 2020-09-23 | Outpatient (CLI) | payer BC ==
--- NOTE | 2020-09-23 17:04 | REP ---
INDICATION: RIGHT THIRD FINGER COMPARISON: 04/21/2017. TECHNIQUE: Four views right hand. FINDINGS: There is no evidence of acute fracture, dislocation, or intrinsic bone disease.Mild narrowing, subchondral sclerosis and spurring at the joint between the trapezium and base of 1st metacarpal. Small subchondral cyst is seen at the base of the 1st metacarpal. Small spur is seen dorsally at the base of the 5th distal phalanx. There is no radiopaque foreign body in the soft tissues. IMPRESSION: No fracture or dislocation. Mild degenerative changes. <Electronically signed by Nehemias Parker > 09/23/20 [id number]
== END ==
LOC: M RAD 16:26
PROVIDERS: ATTEND Nurse Practitioner Adult Health
DX: M25.541 Pain in joints of right hand (principal)

== ENCOUNTER → 2020-10-24 | Outpatient (CLI) | payer BC ==
[2020-10-24 19:14] LABS: BASO % 0.3 % (0.0-1.0); EOS # 0.1 10^3/uL (0.0-0.5); EOS % 0.5 % (0.0-3.0); HEMATOCRIT 45.9 % (36.0-47.0); HEMOGLOBIN 15.2 g/dl (12.0-15.5); LYMPH # 1.2 10^3/uL (1.5-5.0); MEAN CORPUSCULAR HEMOGLOBIN 29.2 pg (27.0-33.0); MEAN CORPUSCULAR HGB CONC 33.1 g/dl (32.0-36.5); MEAN CORPUSCULAR VOLUME 88.1 fl (80.0-96.0); MONO # 0.6 10^3/uL (0.0-0.8); MONO % 6.5 % (2.0-8.0); NEUTROPHILS # 7.8 10^3/uL (1.5-8.5); NEUTROPHILS % 80.4 % (36.0-66.0); PLATELET COUNT, AUTOMATED 288 10^3/uL (150-450); RED BLOOD COUNT 5.21 10^6/uL (4.00-5.40); WHITE BLOOD COUNT 9.7 10^3/uL (4.0-10.0)
[2020-10-24 19:34] LABS: BLOOD UREA NITROGEN 11 MG/DL (7-18); CREATININE FOR GFR 0.71 MG/DL (0.55-1.30); GLOMERULAR FILTRATION RATE > 60.0 (>51); URIC ACID 3.5 MG/DL (2.6-6.0)
[2020-10-24 19:51] LABS: ERYTHROCYTE SEDIMENTATION RATE 5 mm/hr (0-30)
== END ==
LOC: M LAB 17:50
PROVIDERS: ATTEND Physician Assistant Surgical
DX: M79.641 Pain in right hand (principal)

== ENCOUNTER → 2020-11-15 | Outpatient (CLI) | payer BC ==
--- NOTE | 2020-11-15 18:57 | REP ---
INDICATION: PAIN RT HAND EVAL NODULE DISTAL PHALANX ON VOLAR. COMPARISON: Radiographs 09/23/2020. TECHNIQUE: Multiple sequences obtained in the axial, coronal and sagittal planes. Images are of the right 3rd digit. FINDINGS: At the site of the palpable lump anterior to the distal interphalangeal joint and distal phalanx no abnormality is seen. There is no cystic or solid nodule. There is no edema or fluid collection. The underlying phalanges of the 3rd digit demonstrate normal bone marrow signal with no bone marrow edema or occult fracture. The flexor and extensor tendons are intact with no tenosynovitis. The collateral ligaments are intact. IMPRESSION: Negative MRI right 3rd digit. <Electronically signed by Nehemias Parker > 11/15/20 [id number]
== END ==
LOC: M PLARAD 15:20
PROVIDERS: ATTEND Physician Assistant Surgical
DX: M79.641 Pain in right hand (principal)

== ENCOUNTER → 2021-01-12 | Outpatient (CLI) | payer BC ==
[~2021-01-12] MED LIST changes: +ISOVUE-300 61% 50ML VIAL As Ordered ONE; +LIDOCAINE 1% MDV 20ML VIAL As Ordered ONE; +OMEP40CA4 PO; -OMEP40CA97 PO; +PROHANCE 279.3MG/ML 5ML VIAL As Ordered ONE
--- NOTE | 2021-01-12 11:12 | REP ---
INDICATION: RT SHOULDER PAIN RCT / LABRUM TEAR. COMPARISON: None. TECHNIQUE: Coronal oblique T1 and fat suppressed T2. Sagittal oblique fat suppressed T2. Axial [id number] and T2 FLASH. FINDINGS: The pre injection portion of the examination shows: Moderate to severe hypertrophic degenerative change seen involving the acromioclavicular joint. The acromion process is type 1 with a spur arising from the inferior surface at the AC joint. There is marked patchy and linear T2 hyper signal seen within the supraspinatus tendon without evidence of musculotendinous retraction. The supraspinatus muscle may be mildly atrophic. Mild patchy T2 hyper signal is seen in the subscapularis tendon. The biceps tendon resides within the bicipital groove. Patchy and linear T2 hyper signal is seen in the superior labrum anterior to posterior. There is no glenohumeral joint effusion. Multifocal T2 hyper signal is seen in the humeral head consistent with cystic degenerative change which is mild. The post injection portion examination shows: Small amount of the injected fluid to migrate superior to the supraspinatus tendon. There is evidence of linear hyper signal in the posterosuperior labrum which may extend toward the biceps labral complex anteriorly. The glenohumeral ligaments are intact. IMPRESSION: 1. There is evidence of a labral tear as described above. 2. There is supraspinatus tendinitis/tendinosis with evidence of a partial full-thickness tear. 3. AC joint DJD as described above. 4. Other findings as described above. <Electronically signed by Thomas Cristobal > 01/12/21 [id number]
--- NOTE | 2021-01-12 17:18 | REP ---
INDICATION: RT SHOULDER PAIN RCT / LABRUM TEAR COMPARISON: None. TECHNIQUE: The procedure was performed under the direct supervision of Dr. Parker. The benefits and risks including but not limited to pain, infection, bleeding and anaphylaxis were explained to the patient and informed consent was obtained. The right glenohumeral joint space was localized using fluoroscopic guidance. The skin was prepped and draped in a sterile fashion. 1% lidocaine was used as a local anesthetic. Using fluoroscopic guidance a 22 gauge spinal needle was inserted and advanced into the joint. 0.5 ml of Isovue-300 was injected to verify placement. 11 ml of a solution containing 20 ml of sterile saline and 0.15 ml of ProHance was injected into the joint. The needle was removed and the patient was taken to MRI for postprocedural imaging. The patient tolerated the procedure well and there were no immediate complications. Less than 6 seconds of fluoro time was utilized for this procedure. FINDINGS: None IMPRESSION: Fluoro guidance for right shoulder MRI arthrogram injection. <Electronically signed by Oskar Sharpe > 01/12/21 [id number] <Electronically signed by Nehemias Parker > 01/12/21 [id number]
== END ==
LOC: M RADPRO 06:30
PROVIDERS: ATTEND Physician Assistant Surgical
DX: R93.7 Abnormal findings on diagnostic imaging of other parts of musculoskeletal system (principal); M25.511 Pain in right shoulder
CPT/HCPCS: 23350; 73223; 77002; A9576; Q9967

== ENCOUNTER → 2021-02-09 | Outpatient (CLI) | payer BC ==
[~2021-02-09] MED LIST changes: +DICL1GEL3 TOP; +DOXY100T PO; -KLOR10TA76 PO; -KLOR20TA42 PO; -MONT10TA10 PO; +MONT10TA97 PO; +OMEP-218 PO; +POTA-136 PO; +POTA-141 PO; +POTA20EL PO; -PROHANCE 279.3MG/ML 5ML VIAL As Ordered ONE; +methylPREDNISolone SUSP 40MG/ML 1ML VIAL (DEPO MEDROL) As Ordered ONE
== END ==
LOC: M RADPRO 09:00
PROVIDERS: ATTEND Physician Assistant Surgical
DX: M19.011 Primary osteoarthritis, right shoulder (principal)
CPT/HCPCS: 20610; 77002; J1030; Q9967

== ENCOUNTER 2021-03-10 15:57 | Emergency (ER) | payer BC ==
[~2021-03-10] VITALS: Ht 170.2 cm; Wt 118.8 kg
[~2021-03-10 15:57] MED LIST changes: -DICL1GEL3 TOP; -DOXY100T PO; -ISOVUE-300 61% 50ML VIAL As Ordered ONE; -LIDOCAINE 1% MDV 20ML VIAL As Ordered ONE; +MONT10TA10 PO; -MONT10TA97 PO; -OMEP-218 PO; -POTA20EL PO; -methylPREDNISolone SUSP 40MG/ML 1ML VIAL (DEPO MEDROL) As Ordered ONE
[2021-03-10] MEDS ORDERED: DICL1GEL3 TOP (16:50)
[2021-03-10] MEDS ORDERED: OMEP-218 PO (16:50)
[2021-03-10] MEDS ORDERED: DOXY100T PO (16:50)
[2021-03-10] MEDS ORDERED: POTA20EL PO (16:50)
--- NOTE | 2021-03-10 17:01 | REP ---
INDICATION: CHEST PAIN. COMPARISON: Comparison chest x-ray May 21, 2019. TECHNIQUE: Portable upright AP chest radiograph. FINDINGS: The lungs are well inflated and free of infiltrate. Pleural angles are sharp. Heart size is normal. Pulmonary vasculature is not increased. EKG monitoring electrodes are seen overlying the chest. IMPRESSION: No active disease. <Electronically signed by Brad Syed > 03/10/21 [id number]
[2021-03-10 17:12] LABS: BASO # 0.1 10^3/uL (0.0-0.2); BASO % 0.6 % (0.0-1.0); EOS # 0.1 10^3/uL (0.0-0.5); EOS % 1.5 % (0.0-3.0); HEMATOCRIT 45.5 % (36.0-47.0); HEMOGLOBIN 14.9 g/dl (12.0-15.5); LYMPH # 2.1 10^3/uL (1.5-5.0); LYMPH % 27.5 % (24.0-44.0); MEAN CORPUSCULAR HGB CONC 32.7 g/dl (32.0-36.5); MEAN CORPUSCULAR VOLUME 88.5 fl (80.0-96.0); MONO # 0.7 10^3/uL (0.0-0.8); NEUTROPHILS # 4.8 10^3/uL (1.5-8.5); NEUTROPHILS % 61.1 % (36.0-66.0); PLATELET COUNT, AUTOMATED 288 10^3/uL (150-450); RED BLOOD COUNT 5.14 10^6/uL (4.00-5.40); WHITE BLOOD COUNT 7.8 10^3/uL (4.0-10.0)
[2021-03-10 17:42] LABS: GLUCOSE, FASTING 113 MG/DL (70-100)
[2021-03-10 17:43] LABS: BLOOD UREA NITROGEN 15 MG/DL (7-18); CALCIUM LEVEL 9.5 MG/DL (8.5-10.1); CARBON DIOXIDE LEVEL 25 MEQ/L (21-32); CHLORIDE LEVEL 107 MEQ/L (98-107); CK-MB VALUE MASS 1.5 NG/ML (<3.6); CPK CREATINE PHOSPHOKINASE 112 U/L (26-192); GLOMERULAR FILTRATION RATE > 60.0 (>51); MB/CK RELATIVE INDEX 1.34 (< OR =4); POTASSIUM SERUM 4.5 MEQ/L (3.5-5.1); SODIUM LEVEL 139 MEQ/L (136-145); TROPONIN I < 0.02 NG/ML (< 0.10)
[2021-03-10 18:46] VITALS: BP 125/76
--- NOTE | 2021-03-10 20:08 | ECGEPIP ---
[facility] - ED Test Date: 2021-03-10 Pat Name: DEBORAH EDMOND Department: Room: - Gender: Female [employer]: ROSENDO : 1970 Requested By: Roque Gonzalez Order Number: [id number] Reading MD: Yeimy Britton Measurements Intervals [place] Rate: 65 P: 51 AK: 132 QRS: 54 QRSD: 92 T: 53 QT: 410 QTc: 426 Interpretive Statements Normal sinus rhythm possible inferior infarct early repolarization, clinical correlation to exclude ischemia similar 05/21/19 Electronically Signed on 03-10-2021 20:07:58 EDT by Yeimy Britton
== END 2021-03-10 19:04 | disposition home or self-care (01) ==
LOC: M ED 15:57
DX: R07.89 Other chest pain (principal); I50.9 Heart failure, unspecified; I25.2 Old myocardial infarction; K21.9 Gastro-esophageal reflux disease without esophagitis; J45.909 Unspecified asthma, uncomplicated; Z79.51 Long term (current) use of inhaled steroids; Z79.899 Other long term (current) drug therapy; Z79.890 Hormone replacement therapy; Z91.018 Allergy to other foods; Z88.0 Allergy status to penicillin; Z91.030 Bee allergy status; Z88.8 Allergy status to other drugs, medicaments and biological substances; Z88.5 Allergy status to narcotic agent; Z88.1 Allergy status to other antibiotic agents; Z86.718 Personal history of other venous thrombosis and embolism

== ENCOUNTER → 2021-03-16 | Outpatient (REF) | payer BC ==
[~2021-03-16] MED LIST changes: +DICL1GEL3 TOP; +DOXY100T PO; +OMEP-218 PO; +POTA20EL PO
== END ==
LOC: M LAB REF 17:08
PROVIDERS: ATTEND Internal Medicine Nephrology
DX: E83.42 Hypomagnesemia (principal)

== ENCOUNTER → 2021-07-13 | Outpatient (CLI) | payer BC ==
[~2021-07-13] MED LIST changes: -MONT10TA10 PO; +MONT10TA97 PO; +OMEP-173 PO; -OMEP-218 PO
[2021-07-13 10:07] LABS: BLOOD UREA NITROGEN 13 MG/DL (7-18); CALCIUM LEVEL 8.9 MG/DL (8.5-10.1); CARBON DIOXIDE LEVEL 29 MEQ/L (21-32); CHLORIDE LEVEL 111 MEQ/L (98-107); CREATININE FOR GFR 0.73 MG/DL (0.55-1.30); GLOMERULAR FILTRATION RATE > 60.0 (>51); GLUCOSE, FASTING 102 MG/DL (70-100); POTASSIUM SERUM 4.3 MEQ/L (3.5-5.1); SODIUM LEVEL 142 MEQ/L (136-145)
== END ==
LOC: M LAB 08:40
PROVIDERS: ATTEND Orthopaedic Surgery
DX: Z01.812 Encounter for preprocedural laboratory examination (principal)

== ENCOUNTER → 2022-02-07 | Outpatient (CLI) | payer BC ==
[~2022-02-07] MED LIST changes: +DESL5TAB28 PO
== END ==
LOC: M WUC 13:17
PROVIDERS: ATTEND Physician Assistant
DX: M25.522 Pain in left elbow (principal); Z87.81 Personal history of (healed) traumatic fracture

== ENCOUNTER → 2022-03-19 | Outpatient (REF) | payer BC | LOC: M SFHCDERM 17:14 | PROVIDERS: ATTEND Physician Assistant | DX: D22.5 Melanocytic nevi of trunk (principal) ==

== ENCOUNTER → 2022-03-28 | Outpatient (REF) | payer BC ==
[2022-03-28 17:03] LABS: C REACTIVE PROTEIN QUANTITATIV 1.05 MG/DL (0.00-0.30)
[2022-03-28 17:15] LABS: MONO SCRN NEGATIVE (NEGATIVE)
== END ==
LOC: M LAB REF 16:06
PROVIDERS: ATTEND Internal Medicine
DX: R50.9 Fever, unspecified (principal)

== ENCOUNTER → 2022-08-08 | Outpatient (REF) | payer BC | LOC: M SFHCWAGY 15:19 | PROVIDERS: ATTEND Nurse Practitioner Family | DX: Z12.4 Encounter for screening for malignant neoplasm of cervix (principal) | CPT/HCPCS: 87624; G0123 ==

== ENCOUNTER → 2022-08-08 | Outpatient (CLI) | payer BC | LOC: M WHC 10:03 | PROVIDERS: ATTEND Nurse Practitioner Family | DX: Z12.31 Encounter for screening mammogram for malignant neoplasm of breast (principal) ==

== ENCOUNTER → 2023-04-24 | Outpatient (CLI) | payer BC ==
[~2023-04-24] MED LIST changes: +DICL100G10 TOP; -DICL1GEL3 TOP
[2023-04-24 18:01] LABS: BASO % 0.4 % (0.0-1.0); EOS # 0.1 10^3/uL (0.0-0.5); EOS % 1.5 % (0.0-3.0); HEMATOCRIT 42.9 % (36.0-47.0); HEMOGLOBIN 14.2 g/dl (12.0-15.5); LYMPH # 1.7 10^3/uL (1.5-5.0); MEAN CORPUSCULAR HEMOGLOBIN 29.2 pg (27.0-33.0); MEAN CORPUSCULAR HGB CONC 33.1 g/dl (32.0-36.5); MEAN CORPUSCULAR VOLUME 88.3 fl (80.0-96.0); MONO # 0.5 10^3/uL (0.0-0.8); MONO % 7.3 % (2.0-8.0); NEUTROPHILS # 4.9 10^3/uL (1.5-8.5); NEUTROPHILS % 67.5 % (36.0-66.0); PLATELET COUNT, AUTOMATED 274 10^3/uL (150-450); RED BLOOD COUNT 4.86 10^6/uL (4.00-5.40); WHITE BLOOD COUNT 7.3 10^3/uL (4.0-10.0)
[2023-04-24 18:11] LABS: ALBUMIN 3.5 G/DL (3.2-5.2); ALKALINE PHOSPHATASE 86 U/L (46-116); ALT/SGPT 25 U/L (7.0-40); AST/SGOT 11 U/L (<34); BILIRUBIN,TOTAL 0.2 MG/DL (0.3-1.2); BLOOD UREA NITROGEN 15 MG/DL (9-23); CARBON DIOXIDE LEVEL 27 MMOL/L (20-31); CHLORIDE LEVEL 107 MMOL/L (98-107); CHOLESTEROL LEVEL 202 MG/DL (<200); CHOLESTEROL RISK RATIO 4.66 (<5); CREATININE FOR GFR 0.75 MG/DL (0.55-1.30); GLOMERULAR FILTRATION RATE > 60.0 (>51); GLUCOSE, FASTING 110 MG/DL (60-100); HDL CHOLESTEROL 43.3 MG/DL (>40); LDL CHOLESTEROL 127.1 MG/DL (<100); NON-HDL-C 158.7 MG/DL; POTASSIUM SERUM 3.8 MMOL/L (3.5-5.1); SODIUM LEVEL 142 MMOL/L (136-145); TOTAL 25(OH) VITAMIN D 33.7 NG/ML (20.0-100.0); TOTAL PROTEIN 6.5 G/DL (5.7-8.2); TRIGLYCERIDES LEVEL 158 MG/DL (<150)
== END ==
LOC: M LAB 16:51
PROVIDERS: ATTEND Internal Medicine Cardiovascular Disease
DX: E55.9 Vitamin D deficiency, unspecified (principal); I50.9 Heart failure, unspecified; R06.02 Shortness of breath; E78.2 Mixed hyperlipidemia; I48.91 Unspecified atrial fibrillation

== ENCOUNTER → 2023-06-12 | Outpatient (CLI) | payer BC ==
[2023-06-12 19:06] LABS: BASO % 0.5 % (0.0-1.0); EOS # 0.1 10^3/uL (0.0-0.5); EOS % 1.5 % (0.0-3.0); HEMATOCRIT 44.5 % (36.0-47.0); HEMOGLOBIN 14.6 g/dl (12.0-15.5); LYMPH # 1.6 10^3/uL (1.5-5.0); LYMPH % 26.3 % (24.0-44.0); MEAN CORPUSCULAR HEMOGLOBIN 28.9 pg (27.0-33.0); MEAN CORPUSCULAR HGB CONC 32.8 g/dl (32.0-36.5); MEAN CORPUSCULAR VOLUME 87.9 fl (80.0-96.0); MONO # 0.4 10^3/uL (0.0-0.8); MONO % 6.7 % (2.0-8.0); NEUTROPHILS # 3.9 10^3/uL (1.5-8.5); NEUTROPHILS % 64.8 % (36.0-66.0); PLATELET COUNT, AUTOMATED 247 10^3/uL (150-450); RED BLOOD COUNT 5.06 10^6/uL (4.00-5.40)
[2023-06-12 19:26] LABS: ALBUMIN 3.7 G/DL (3.2-5.2); ALKALINE PHOSPHATASE 78 U/L (46-116); ALT/SGPT 29 U/L (7.0-40); AST/SGOT 16 U/L (<34); BILIRUBIN,TOTAL 0.4 MG/DL (0.3-1.2); BLOOD UREA NITROGEN 12 MG/DL (9-23); CALCIUM LEVEL 9.4 MG/DL (8.5-10.1); CARBON DIOXIDE LEVEL 27 MMOL/L (20-31); CHLORIDE LEVEL 106 MMOL/L (98-107); CHOLESTEROL LEVEL 129 MG/DL (<200); CHOLESTEROL RISK RATIO 3.16 (<5); CREATININE FOR GFR 0.77 MG/DL (0.55-1.30); GLOMERULAR FILTRATION RATE > 60.0 (>51); GLUCOSE, FASTING 117 MG/DL (60-100); HDL CHOLESTEROL 40.7 MG/DL (>40); LDL CHOLESTEROL 67.1 MG/DL (<100); MAGNESIUM LEVEL 2.2 MG/DL (1.8-2.4); NON-HDL-C 88.3 MG/DL; POTASSIUM SERUM 3.5 MMOL/L (3.5-5.1); SODIUM LEVEL 139 MMOL/L (136-145); TOTAL 25(OH) VITAMIN D 47.9 NG/ML (20.0-100.0); TOTAL PROTEIN 6.3 G/DL (5.7-8.2); TRIGLYCERIDES LEVEL 106 MG/DL (<150)
== END ==
LOC: M LAB 17:11
PROVIDERS: ATTEND Internal Medicine Cardiovascular Disease
DX: E55.9 Vitamin D deficiency, unspecified (principal); I50.9 Heart failure, unspecified; R06.02 Shortness of breath; E78.2 Mixed hyperlipidemia; I48.91 Unspecified atrial fibrillation

== ENCOUNTER → 2023-07-08 | Outpatient (CLI) | payer BC ==
[2023-07-08 17:41] LABS: BLOOD UREA NITROGEN 13 MG/DL (9-23); CALCIUM LEVEL 9.3 MG/DL (8.5-10.1); CARBON DIOXIDE LEVEL 26 MMOL/L (20-31); CHLORIDE LEVEL 105 MMOL/L (98-107); CREATININE FOR GFR 0.84 MG/DL (0.55-1.30); GLOMERULAR FILTRATION RATE > 60.0 (>51); GLUCOSE, FASTING 129 MG/DL (60-100); POTASSIUM SERUM 3.9 MMOL/L (3.5-5.1); SODIUM LEVEL 138 MMOL/L (136-145)
[2023-07-08 18:04] LABS: BASO % 0.3 % (0.0-1.0); EOS # 0.1 10^3/uL (0.0-0.5); EOS % 1.1 % (0.0-3.0); HEMATOCRIT 44.6 % (36.0-47.0); LYMPH # 1.7 10^3/uL (1.5-5.0); LYMPH % 22.9 % (24.0-44.0); MEAN CORPUSCULAR HEMOGLOBIN 29.5 pg (27.0-33.0); MEAN CORPUSCULAR HGB CONC 33.6 g/dl (32.0-36.5); MEAN CORPUSCULAR VOLUME 87.6 fl (80.0-96.0); MONO # 0.5 10^3/uL (0.0-0.8); NEUTROPHILS # 5.1 10^3/uL (1.5-8.5); NEUTROPHILS % 68.6 % (36.0-66.0); PLATELET COUNT, AUTOMATED 240 10^3/uL (150-450); RED BLOOD COUNT 5.09 10^6/uL (4.00-5.40); WHITE BLOOD COUNT 7.5 10^3/uL (4.0-10.0)
== END ==
LOC: M LAB 16:28
PROVIDERS: ATTEND Registered Nurse
DX: I48.0 Paroxysmal atrial fibrillation (principal); I50.9 Heart failure, unspecified

== ENCOUNTER → 2023-09-02 | Outpatient (CLI) | payer BC ==
[~2023-09-02] MED LIST changes: -POTA20EL PO; +POTA20LI16 PO
[2023-09-02 16:06] LABS: ALBUMIN 3.8 G/DL (3.2-5.2); ALKALINE PHOSPHATASE 82 U/L (46-116); ALT/SGPT 29 U/L (7.0-40); AST/SGOT 15 U/L (<34); BILIRUBIN,TOTAL 0.3 MG/DL (0.3-1.2); BLOOD UREA NITROGEN 13 MG/DL (9-23); CALCIUM LEVEL 9.1 MG/DL (8.5-10.1); CARBON DIOXIDE LEVEL 28 MMOL/L (20-31); CHLORIDE LEVEL 109 MMOL/L (98-107); CHOLESTEROL LEVEL 128 MG/DL (<200); CHOLESTEROL RISK RATIO 3.27 (<5); CREATININE FOR GFR 0.75 MG/DL (0.55-1.30); GLOMERULAR FILTRATION RATE > 60.0 (>51); GLUCOSE, FASTING 109 MG/DL (60-100); HDL CHOLESTEROL 39.1 MG/DL (>40); LDL CHOLESTEROL 66.1 MG/DL (<100); NON-HDL-C 88.9 MG/DL; POTASSIUM SERUM 4.1 MMOL/L (3.5-5.1); SODIUM LEVEL 141 MMOL/L (136-145); TOTAL PROTEIN 6.5 G/DL (5.7-8.2); TRIGLYCERIDES LEVEL 114 MG/DL (<150)
[2023-09-04 08:11] LABS: LDL DIRECT 70 mg/dL (0-99)
== END ==
LOC: M LAB 14:59
PROVIDERS: ATTEND Internal Medicine Cardiovascular Disease
DX: E78.2 Mixed hyperlipidemia (principal); I25.10 Atherosclerotic heart disease of native coronary artery without angina pectoris; I50.9 Heart failure, unspecified

== ENCOUNTER → 2023-09-30 | Outpatient (CLI) | payer BC | LOC: M WUC 13:22 | PROVIDERS: ATTEND Registered Nurse | DX: M25.512 Pain in left shoulder (principal); M65.28 Calcific tendinitis, other site ==

== ENCOUNTER → 2023-10-18 | Outpatient (CLI) | payer BC ==
[2023-10-18 18:35] LABS: HEPATITIS B SURFACE ANTIGEN NEGATIVE (NEGATIVE)
[2023-10-18 18:48] LABS: HIV 1&2 SCREEN NEGATIVE (NEGATIVE)
[2023-10-18 18:56] LABS: HEPATITIS C VIRUS ABY INDEX < 0.02 INDEX (<0.8)
[2023-10-18 18:57] LABS: HEPATITIS B CORE ANTIBODY IGM NEGATIVE (NEGATIVE)
[2023-10-18 20:51] LABS: Trichomonas vaginalis (AMP) NOT DETECTED (NEGATIVE)
[2023-10-18 21:15] LABS: GC DNA AMPLIFICATION NEGATIVE (NEGATIVE)
== END ==
LOC: M PLALAB 16:31
PROVIDERS: ATTEND Nurse Practitioner Family
DX: Z12.4 Encounter for screening for malignant neoplasm of cervix (principal); Z11.3 Encounter for screening for infections with a predominantly sexual mode of transmission
CPT/HCPCS: 36415; 86705; 86709; 86780; 86803; 87340; 87389; 87624; 87661; 87810; 87850; G0123

== ENCOUNTER → 2023-10-18 | Outpatient (CLI) | payer BC | LOC: M WHC 15:24 | PROVIDERS: ATTEND Nurse Practitioner Family | DX: Z12.31 Encounter for screening mammogram for malignant neoplasm of breast (principal) ==

== ENCOUNTER → 2023-11-26 | Outpatient (CLI) | payer BC ==
[~2023-11-26] MED LIST changes: +ISOVUE-300 61% 100ML VIAL As Ordered ONE; +LIDOCAINE 1% MDV 20ML VIAL As Ordered ONE
== END ==
LOC: M RAD 09:19
PROVIDERS: ATTEND Physician Assistant
DX: S46.012D Strain of muscle(s) and tendon(s) of the rotator cuff of left shoulder, subsequent encounter (principal)
CPT/HCPCS: 23350; 73201; 77002; Q9967

== ENCOUNTER → 2024-02-17 | Outpatient (CLI) | payer BC ==
[~2024-02-17] MED LIST changes: -ISOVUE-300 61% 100ML VIAL As Ordered ONE; -LIDOCAINE 1% MDV 20ML VIAL As Ordered ONE
[2024-02-17 16:57] LABS: BLOOD UREA NITROGEN 12 MG/DL (9-23); CALCIUM LEVEL 9.5 MG/DL (8.5-10.1); CARBON DIOXIDE LEVEL 26 MMOL/L (20-31); CHLORIDE LEVEL 106 MMOL/L (98-107); CREATININE FOR GFR 0.73 MG/DL (0.55-1.30); GLOMERULAR FILTRATION RATE > 60.0 (>51); GLUCOSE, FASTING 96 MG/DL (60-100); MAGNESIUM LEVEL 1.9 MG/DL (1.8-2.4); POTASSIUM SERUM 3.8 MMOL/L (3.5-5.1); SODIUM LEVEL 137 MMOL/L (136-145)
== END ==
LOC: M LAB 15:49
PROVIDERS: ATTEND Internal Medicine Cardiovascular Disease
DX: I50.32 Chronic diastolic (congestive) heart failure (principal)

== ENCOUNTER → 2024-08-14 | Outpatient (CLI) | payer BC ==
[~2024-08-14] MED LIST changes: +BUDE180A2 INH; -BUDE180INH INH; -DESL5TAB28 PO; +DESL5TAB30 PO; +LEVA15HF2 INH; -LEVAINH INH
[2024-08-14 13:20] LABS: HEMATOCRIT 44.1 % (36.0-47.0); HEMOGLOBIN 14.6 g/dl (12.0-15.5); MEAN CORPUSCULAR HEMOGLOBIN 29.1 pg (27.0-33.0); MEAN CORPUSCULAR HGB CONC 33.1 g/dl (32.0-36.5); PLATELET COUNT, AUTOMATED 217 10^3/uL (150-450); RED BLOOD COUNT 5.01 10^6/uL (4.00-5.40); WHITE BLOOD COUNT 7.3 10^3/uL (4.0-10.0)
[2024-08-14 13:51] LABS: ALBUMIN 3.4 G/DL (3.2-5.2); ALKALINE PHOSPHATASE 76 U/L (35-104); ALT/SGPT 28 U/L (7.0-40); AST/SGOT 14 U/L (<34); BILIRUBIN,TOTAL 0.7 MG/DL (0.3-1.2); BLOOD UREA NITROGEN 13 MG/DL (9-23); CALCIUM LEVEL 9.4 MG/DL (8.5-10.1); CARBON DIOXIDE LEVEL 26 MMOL/L (20-31); CHLORIDE LEVEL 103 MMOL/L (98-107); CHOLESTEROL LEVEL 162 MG/DL (<200); CHOLESTEROL RISK RATIO 3.85 (<5); CREATININE FOR GFR 0.74 MG/DL (0.55-1.30); FREE T4 0.99 NG/DL (0.89-1.76); GLOMERULAR FILTRATION RATE > 60.0 (>51); GLUCOSE, FASTING 97 MG/DL (60-100); LDL CHOLESTEROL 94.6 MG/DL (<100); POTASSIUM SERUM 4.2 MMOL/L (3.5-5.1); SODIUM LEVEL 140 MMOL/L (136-145); THYROID STIMULATING HORMONE 1.325 uIU/ML (0.55-4.78); TOTAL PROTEIN 6.6 G/DL (5.7-8.2); TRIGLYCERIDES LEVEL 127 MG/DL (<150)
[2024-08-14 13:54] LABS: CREATININE, URINE 134.6 MG/DL
[2024-08-14 13:55] LABS: MAU/CREAT RATIO 6.6 MCG/MG (0.0-30.0)
== END ==
LOC: M LAB 11:26
PROVIDERS: ATTEND Nurse Practitioner Family
DX: E78.00 Pure hypercholesterolemia, unspecified (principal); E11.65 Type 2 diabetes mellitus with hyperglycemia

== ENCOUNTER → 2025-01-04 | Outpatient (CLI) | payer BC ==
[~2025-01-04] MED LIST changes: +ISOVUE-370 76% 100 ML VIAL As Ordered ONE
== END ==
LOC: M RAD 16:42
PROVIDERS: ATTEND Internal Medicine
DX: E26.09 Other primary hyperaldosteronism (principal); N28.1 Cyst of kidney, acquired; K42.9 Umbilical hernia without obstruction or gangrene
CPT/HCPCS: 74170; Q9967

== ENCOUNTER 2025-03-12 15:44 | Emergency (ER) | payer BC ==
[~2025-03-12] VITALS: Ht 170.2 cm; Wt 135.0 kg
[~2025-03-12 15:44] MED LIST changes: -ISOVUE-370 76% 100 ML VIAL As Ordered ONE
[2025-03-12] MEDS ORDERED: ROSU40TA81 (15:57)
[2025-03-12] MEDS ORDERED: SPIR50TA4 (15:57)
[2025-03-12 16:46] LABS: BASO # 0.0 10^3/uL (0.0-0.2); BASO % 0.4 % (0.0-1.0); EOS # 0.1 10^3/uL (0.0-0.5); EOS % 1.0 % (0.0-3.0); LYMPH # 1.6 10^3/uL (1.5-5.0); LYMPH % 20.4 % (24.0-44.0); MONO # 0.6 10^3/uL (0.0-0.8); MONO % 7.8 % (2.0-8.0); NEUTROPHILS # 5.4 10^3/uL (1.5-8.5); NEUTROPHILS % 70.3 % (36.0-66.0); PLATELET COUNT, AUTOMATED 261 10^3/uL (150-450)
[2025-03-12 17:12] LABS: ALT/SGPT 44 U/L (7.0-40); AST/SGOT 28 U/L (<34); CALCIUM LEVEL 9.9 MG/DL (8.5-10.1); CARBON DIOXIDE LEVEL 28 MMOL/L (20-31); CHLORIDE LEVEL 103 MMOL/L (98-107); CREATININE FOR GFR 0.72 MG/DL (0.55-1.30); GLOMERULAR FILTRATION RATE > 90.0 (>51); POTASSIUM SERUM 4.1 MMOL/L (3.5-5.1); SODIUM LEVEL 142 MMOL/L (136-145)
[2025-03-12] MEDS: ONDANSETRON 4MG ORAL DISINTEGRATING TAB PO ONE (21:23)
[2025-03-12] MEDS ORDERED: ONDA-282 PO (21:58)
[2025-03-12 22:05] VITALS: BP 126/69; TEMP 97.2; O2SAT 95
== END 2025-03-12 22:06 | disposition home or self-care (01) ==
LOC: M ED 15:44
DX: R11.2 Nausea with vomiting, unspecified (principal); E87.6 Hypokalemia; K21.9 Gastro-esophageal reflux disease without esophagitis; G47.33 Obstructive sleep apnea (adult) (pediatric); I25.2 Old myocardial infarction; Z88.0 Allergy status to penicillin; Z88.5 Allergy status to narcotic agent; Z88.1 Allergy status to other antibiotic agents; Z88.8 Allergy status to other drugs, medicaments and biological substances; Z91.018 Allergy to other foods; Z91.030 Bee allergy status; Z79.52 Long term (current) use of systemic steroids; Z79.899 Other long term (current) drug therapy